=== PATIENT | male | born 1990 | race African-American/Black ===

== ENCOUNTER 2020-09-21 02:42 | Emergency (ER) | payer SELFPAY ==
[~2020-09-21] VITALS: Ht 175.3 cm; Wt 77.0 kg
[2020-09-21] MEDS ORDERED: AMOX-494 MT (03:11)
[2020-09-21] MEDS ORDERED: T3 PO (03:11)
[2020-09-21] MEDS ORDERED: IBUP-2029 MT (03:11)
[2020-09-21] MEDS ORDERED: HYDROCODONE/ACETAMINOPHEN 5/325MG TABLET PO ONE (03:15)
[2020-09-21 03:31] VITALS: BP 137/86
== END 2020-09-21 03:33 | disposition home or self-care (01) ==
LOC: ER 02:42
DX: K08.89 Other specified disorders of teeth and supporting structures (principal)
CPT/HCPCS: 99283